=== PATIENT | female | born 1995 | race Caucasian/White ===

== ENCOUNTER 2017-06-05 22:41 | Emergency (ER) | payer MEDICAID, OTHER ==
[2017-06-05 22:53] VITALS: BP 110/67; PULSE 91; RESP 17; TEMP 98.9; BMI 31.1
[2017-06-05 22:58] VITALS: O2SAT 98
--- NOTE | 2017-06-05 23:11 | ED PDOC ---
Arrival/HPI - General Historian: Patient <Heriberto Earl A - Last Filed: 06/05/17 23:08> <Aubrey Hughes - Last Filed: 06/06/17 00:38> - General Chief Complaint: Female Genitourinary Time Seen by Provider: 06/05/17 23:08 - History of Present Illness Narrative History of Present Illness (Text): 06/05/17 23:12 21yo female present to ED stating she wants to save her . She notes that she is currently 5weeks . states she had wanted to abort the . Was given Methotrexate injection and Rhogam today by her OB. She report that she still have the methotrexate medication to take orally, but was given a dose of IM methotrexate earlier today, but she changed her mind about the tonight. States she want;s to know if we can save the baby. She however denies any abdominal pain, vaginal bleeding, nausea, vomiting, any other somatic complaint. (Heriberto Earl A) Past Medical History - Provider Review Nursing Documentation Reviewed: Yes - Infectious Disease Hx of Infectious Diseases: None - Reproductive Currently : Yes - Cardiac Hx Cardiac Disorders: No - Pulmonary Hx Respiratory Disorders: No - Neurological Hx Neurological Disorder: No - HEENT Hx HEENT Disorder: No - Renal Hx Renal Disorder: No - Endocrine/Metabolic Hx Endocrine Disorders: No - Hematological/Oncological Hx Blood Disorders: No - Integumentary Hx Dermatological Disorder: No - Musculoskeletal/Rheumatological Hx Musculoskeletal Disorders: No - Gastrointestinal Hx Gastrointestinal Disorders: No - Genitourinary/Gynecological Hx Genitourinary Disorders: No - Psychiatric Hx Psychophysiologic Disorder: No Hx Anxiety: No Hx Bipolar Disorder: No Hx Depression: No Hx Emotional Abuse: No Hx Hallucinations: No Hx Panic Disorder: No Hx Post Traumatic Stress Disorder: No Hx Psychosis: No Hx Physical Abuse: No Hx Schizophrenia: No Hx Sexual Abuse: No Hx Substance Use: No - Anesthesia Hx Anesthesia: No Hx Anesthesia Reactions: No Hx Malignant Hyperthermia: No <Heriberto Earl - Last Filed: 06/05/17 23:08> Family/Social History - Physician Review Nursing Documentation Reviewed: Yes Family/Social History: Unknown Family HX Smoking Status: Never Smoked Hx Alcohol Use: No Hx Substance Use: No <Heriberto Earl A - Last Filed: 06/05/17 23:08> Allergies/Home Meds <Heriberto tuttle A - Last Filed: 06/05/17 23:08> <Aubrey Hughes - Last Filed: 06/06/17 00:38> Allergies/Adverse Reactions: Allergies No Known Allergies Allergy (Verified 06/05/17 22:53) Home Medications: Home Meds Medication Instructions Recorded Confirmed No Known Home Med 08/31/15 06/05/17 Review of Systems - Physician Review All systems were reviewed & negative as marked: Yes - Review of Systems Constitutional: Normal Eyes: Normal ENT: Normal Respiratory: Normal Cardiovascular: Normal Gastrointestinal: Normal Genitourinary Female: Normal Musculoskeletal: Normal Skin: Normal Neurological: Normal Endocrine: Normal Hemo/Lymphatic: Normal Psychiatric: Normal <Heriberto Earl A - Last Filed: 06/05/17 23:08> Physical Exam Vital Signs Reviewed: Yes Temperature: Afebrile Blood Pressure: Normal Pulse: Regular Respiratory Rate: Normal Appearance: Positive for: Well-Appearing, Non-Toxic, Comfortable Pain Distress: None Mental Status: Positive for: Alert and Oriented X 3 - Systems Exam Head: Present: Atraumatic, Normocephalic Pupils: Present: PERRL Extroacular Muscles: Present: EOMI Conjunctiva: Present: Normal Mouth: Present: Moist Mucous Membranes Neck: Present: Normal Range of Motion Respiratory/Chest: Present: Clear to Auscultation, Good Air Exchange. No: Respiratory Distress, Accessory Muscle Use Cardiovascular: Present: Regular Rate and Rhythm, Normal S1, S2. No: Murmurs Abdomen: Present: Normal Bowel Sounds. No: Tenderness, Distention, Peritoneal Signs Back: Present: Normal Inspection Upper Extremity: Present: Normal Inspection. No: Cyanosis, Edema Lower Extremity: Present: Normal Inspection. No: Edema Neurological: Present: GCS=15, CN II-XII Intact, Speech Normal Skin: Present: Warm, Dry, Normal Color. No: Rashes Psychiatric: Present: Alert, Oriented x 3, Normal Insight, Normal Concentration <Heriberto Earl A - Last Filed: 06/05/17 23:08> Vital Signs Temp Pulse Resp BP Pulse Ox 06/05/17 22:53 98.9 F 91 H 17 110/67 98 06/05/17 22:52 98.9 F 91 H 17 110/67 100 Medical Decision Making <Heriberto Earl A - Last Filed: 06/05/17 23:08> <EllenAubrey - Last Filed: 06/06/17 00:38> ED Course and Treatment: 06/05/17 23:17 Pt denied any somatic complaint in ED. She was hemodynamically stable and in no distress. She wanted her to be save after taking a dose of methotrexate today. She was advised that they is nothing we can do at this time. Advised to call her OB tomorrow morning and inform them of her decision to keep her . She plan not to take the remaining methotrexate . She was advised to return to ED if she starts having abdominal pain or having vaginal bleeding. (Heriberto Earl) - PA / MANAGER STATISTICS / Resident Statement / has reviewed & agrees with the documentation as recorded. <Aubrey Hughes - Last Filed: 06/06/17 00:38> Disposition/Present on Arrival - Present on Arrival Any Indicators Present on Arrival: No History of DVT/PE: No History of Uncontrolled Diabetes: No Urinary Catheter: No History of Decub. Ulcer: No History Surgical Site Infection Following: None - Disposition Have Diagnosis and Disposition been Completed?: Yes Disposition Time: 23:10 Patient Plan: Discharge <Heriberto Earl - Last Filed: 06/05/17 23:08> <Aubrey Hughes - Last Filed: 06/06/17 00:38> - Disposition Diagnosis: Abdominal pain Disposition: HOME/ ROUTINE Condition: STABLE Discharge Instructions (ExitCare): Abdominal Pain (ED) Additional Instructions: Follow up with your OB Return to ED for any pain, vaginal bleeding, any other complaint. Referrals: Mukund Brewer MD [Staff Provider] - Follow up with primary Forms: [employer] (Maltese)
== END 2017-06-05 23:22 | disposition home or self-care (01) ==
LOC: ED 22:41
DX: R10.9 Unspecified abdominal pain (principal)

== ENCOUNTER 2017-06-07 14:22 | Emergency (ER) | payer MEDICAID ==
[2017-06-07 14:39] VITALS: BMI 30.2
[2017-06-07 14:43] VITALS: TEMP 98.1; O2SAT 100
[2017-06-07 15:56] LABS: BASO # 0.01 K/mm3 (0.0-2.0); BASO % 0.1 % (0.0-3.0); EOS # 0.1 (0.0-0.7); EOS % 0.5 % (1.5-5.0); GRAN # 6.64 (1.4-6.5); GRAN % 70.1 % (50.0-68.0); HEMATOCRIT 38.3 % (36.0-48.0); LYMPH # 2.4 (1.2-3.4); LYMPH % 25.1 % (22.0-35.0); MEAN CELL VOLUME 73.4 fl (80.0-105.0); MEAN CORPUSCULAR HEMOGLOBIN 24.3 pg (25.0-35.0); MEAN CORPUSCULAR HGB CONC 33.2 g/dl (31.0-37.0); MEAN PLATELET VOLUME 10.5 fl (7.0-11.0); MONO # 0.4 (0.1-0.6); MONO % 4.2 % (1.0-6.0); RED CELL DISTRIBUTION WIDTH 14.3 % (11.5-14.5); WHITE BLOOD COUNT 9.5 10^3/ul (4.5-11.0)
[2017-06-07 16:04] LABS: ALB/GLOB RATIO 1.3 (1.1-1.8); ALKALINE PHOSPHATASE 40 U/L (38-126); ALT/SGPT 48 U/L (7-56); AST/SGOT 35 U/L (14-36); BILIRUBIN,TOTAL 0.5 mg/dL (0.2-1.3); BLOOD UREA NITROGEN 13 mg/dL (7-21); CALCIUM 9.7 mg/dL (8.4-10.5); CARBON DIOXIDE 23 mmol/L (21-33); CHLORIDE 104 mmol/L (98-107); GFR AFRICAN-AMERICAN > 60; GLUCOSE,RANDOM 88 mg/dL (70-110); LIPASE 49 U/L (23-300); POTASSIUM 4.1 mmol/L (3.6-5.0); SODIUM 138 mmol/L (132-148); TOTAL PROTEIN 7.6 g/dL (5.8-8.3)
[2017-06-07 16:06] VITALS: BP 115/71; PULSE 99; RESP 18
--- NOTE | 2017-06-07 17:17 | US ---
Indication: , abdominal cramping Comparison: None available. Technique: Transvaginal pelvic ultrasound Findings: The uterus measures approximately 7.4 x 5.1 x 4.9 cm. Cervix length measures approximately 3.4 cm. There is a single intrauterine fetus present. 4 mm yolk sac. The gestational sac measures 1.8 cm and is compatible with a gestational age of 6 weeks 2 days. The crown-rump length measures 0.3 cm and is compatible with a gestational age of 6 weeks 0 days. There is heart motion which measured 149.2 BPM. The right ovary measures 1.9 x 1.7 x 1.5 cm. The left ovary is not visualized. Blood flow is demonstrated to the right ovary. Impression: Live single intrauterine with estimated gestational age 6 weeks 1 day. heart rate 149.2 bpm. Advise an anomaly screen at 16-18 weeks gestational age The left ovary was not visualized.
[2017-06-07 17:27] LABS: URINE BILIRUBIN NEGATIVE (NEGATIVE); URINE BLOOD NEGATIVE (NEGATIVE); URINE GLUCOSE (UA) NEGATIVE (NEGATIVE); URINE KETONE NEGATIVE (NEGATIVE); URINE LEUKOCYTE ESTERASE NEGATIVE Leu/uL (NEGATIVE); URINE PROTEIN NEGATIVE mg/dL (<30 mg/dL); URINE UROBILINOGEN 0.2 E.U./dL (<1 E.U./dL)
[2017-06-07 17:29] LABS: URINE APPEARANCE CLEAR (CLEAR); URINE COLOR YELLOW (YELLOW)
--- NOTE | 2017-06-07 17:34 | ED PDOC ---
Arrival/HPI - General Chief Complaint: Abdominal Pain Time Seen by Provider: 06/07/17 14:36 Historian: Patient - History of Present Illness Narrative History of Present Illness (Text): 06/07/17 17:31 21-year-old female presents today requesting an evaluation to check on the status of her . Patient states 2 days ago she received an IM injection of methotrexate for an elective termination of her . Patient states after getting the IM injection of methotrexate and Rhogam her and her partner decided that they no longer wanted to terminate the . So she did not take the oral methotrexate pills that she was prescribed. Patient states she spoke with her assembler trim and a assembler trim advised her to take folic acid and monitor her symptoms. Patient states that she told the triage nurse today that she had abdominal cramping, but she states "I do not have any pain I really just wanted to see what is going on with the baby'. Patient denies vaginal bleeding or vaginal discharge. She denies abdominal pain. She denies nausea vomiting diarrhea or constipation. She denies any urinary symptoms. Quality: Other (no pain) Past Medical History - Provider Review Nursing Documentation Reviewed: Yes - Travel History Have you recently traveled outside [place] w/in the past 3 mons?: No - Infectious Disease Hx of Infectious Diseases: None - Tetanus Immunization Tetanus Immunization: Unknown - Cardiac Hx Cardiac Disorders: No - Pulmonary Hx Respiratory Disorders: No - Neurological Hx Neurological Disorder: No - HEENT Hx HEENT Disorder: No - Renal Hx Renal Disorder: No - Endocrine/Metabolic Hx Endocrine Disorders: No - Hematological/Oncological Hx Blood Disorders: No - Integumentary Hx Dermatological Disorder: No - Musculoskeletal/Rheumatological Hx Musculoskeletal Disorders: No - Gastrointestinal Hx Gastrointestinal Disorders: No - Genitourinary/Gynecological Hx Genitourinary Disorders: No - Psychiatric Hx Psychophysiologic Disorder: No Hx Anxiety: No Hx Bipolar Disorder: No Hx Depression: No Hx Emotional Abuse: No Hx Hallucinations: No Hx Panic Disorder: No Hx Post Traumatic Stress Disorder: No Hx Psychosis: No Hx Physical Abuse: No Hx Schizophrenia: No Hx Sexual Abuse: No Hx Substance Use: No - Anesthesia Hx Anesthesia: No Hx Anesthesia Reactions: No Hx Malignant Hyperthermia: No Family/Social History - Physician Review Nursing Documentation Reviewed: Yes Family/Social History: Unknown Family HX Smoking Status: Never Smoked Hx Alcohol Use: No Hx Substance Use: No Allergies/Home Meds Allergies/Adverse Reactions: Allergies No Known Allergies Allergy (Verified 06/07/17 14:38) Home Medications: Home Meds Medication Instructions Recorded Confirmed Vit No.126/Iron/Folic 1 tab PO DAILY 06/07/17 06/07/17 [Classic Tablet] Review of Systems - Review of Systems Constitutional: absent: Fatigue, Fevers Respiratory: absent: SOB, Cough Cardiovascular: absent: Chest Pain, Palpitations, Other Gastrointestinal: absent: Abdominal Pain, Constipation, Diarrhea, Nausea, Vomiting Genitourinary Female: absent: Dysuria, Frequency, Hematuria, Vaginal Bleeding, Vaginal Discharge Musculoskeletal: absent: Arthralgias, Back Pain Skin: absent: Rash, Pruritis Neurological: absent: Headache, Dizziness Psychiatric: absent: Anxiety, Depression, Suicidal Ideation Physical Exam Vital Signs Reviewed: Yes Vital Signs Temp Pulse Resp BP Pulse Ox 06/07/17 16:05 99 H 18 115/71 100 06/07/17 14:41 98.1 F 121 H 17 117/76 100 Temperature: Afebrile Blood Pressure: Normal Pulse: Tachycardic Respiratory Rate: Normal Appearance: Positive for: Well-Appearing, Non-Toxic, Comfortable Pain Distress: None Mental Status: Positive for: Alert and Oriented X 3 - Systems Exam Head: Present: Atraumatic Mouth: Present: Moist Mucous Membranes Respiratory/Chest: Present: Clear to Auscultation Cardiovascular: Present: Regular Rate and Rhythm Abdomen: Present: Normal Bowel Sounds. No: Tenderness, Distention, Peritoneal Signs, Rebound, Guarding Genitourinary/Pelvic Exam: Present: Other (PT REFUSED VAGINAL/SPECULUM EXAMINATION) Back: Present: Normal Inspection. No: CVA Tenderness Neurological: Present: GCS=15, Speech Normal Skin: Present: Warm, Dry, Normal Color. No: Rashes Psychiatric: Present: Alert, Oriented x 3 Medical Decision Making ED Course and Treatment: 06/07/17 17:34 Patient is nontoxic well appearing in no distress. no abdominal pain. no vaginal bleeding or discharge. pt without any complaints. just wants to see if baby is okay after taking one dose of methotrexate. CBC: wnl CMP: wnl Beta hC TYPE AND SCREEN:A- Urinalysis: wnl Ultrasound: Findings: The uterus measures approximately 7.4 x 5.1 x 4.9 cm. Cervix length measures approximately 3.4 cm. There is a single intrauterine fetus present. 4 mm yolk sac. The gestational sac measures 1.8 cm and is compatible with a gestational age of 6 weeks 2 days. The crown-rump length measures 0.3 cm and is compatible with a gestational age of 6 weeks 0 days. There is heart motion which measured 149.2 BPM. The right ovary measures 1.9 x 1.7 x 1.5 cm. The left ovary is not visualized. Blood flow is demonstrated to the right ovary. Impression: Live single intrauterine with estimated gestational age 6 weeks 1 day. heart rate 149.2 bpm. Advise an anomaly screen at 16-18 weeks gestational age The left ovary was not visualized. Discussed all the results the patient. I have had a long in-depth conversation with the patient and the patient's partner advising them that even though the ultrasound shows a heartbeat at this point there is still concern for the possibility of /miscarriage. I have also advised the patient that with a history of taking a dose of methotrexate there is concern/possibility for deformity/disability of the fetus even if the remains viable. i have stressed importance of f/u with fleet service clerk and advised continuation of vitamins. advised immediate return if any concerning symptoms develop. Patient reassessment, vital signs are stable. pt remains without any complaints. pt has refused pelvic examination. Patient verbalizes understanding of discharge instructions and need for immediate followup. all aspects of this case were discussed the attending of record. Impression: Tylenol every 4 hours as needed for pain Increase fluids Followup with the optometric aide within the next 2 days Return immediately if symptoms worsen persist or if new symptoms develop: High fevers, heavy bleeding, severe abdominal pain, vomiting, diarrhea, dizziness or weakness or any other concerning symptoms develop. - Lab Interpretations Lab Results: 06/07/17 15:45 06/07/17 15:45 Lab Results 06/07/17 15:45: WBC 9.5 D, RBC 5.22, Hgb 12.7, Hct 38.3, MCV 73.4 L, MCH 24.3 L , MCHC 33.2, RDW 14.3, Plt Count 221, MPV 10.5, Gran % 70.1 H, Lymph % (Auto) 25.1, [place] % (Auto) 4.2, Eos % (Auto) 0.5 L, Baso % (Auto) 0.1, Gran # 6.64 H, Lymph # 2.4, [place] # 0.4, Eos # 0.1, Baso # 0.01 06/07/17 15:45: Blood Type A NEGATIVE, Antibody Screen Positive, Antibody Identification Anti D, BBK History Checked No verified bt 06/07/17 15:45: Beta HCG, Quant 22381.00 H 06/07/17 15:45: Sodium 138, Potassium 4.1, Chloride 104, Carbon Dioxide 23, Anion Gap 15, BUN 13, Creatinine 0.6 L, Est GFR ( Amer) > 60, Est GFR ( Non-Af Amer) > 60, Random Glucose 88, Calcium 9.7, Total Bilirubin 0.5, AST 35, ALT 48, Alkaline Phosphatase 40, Total Protein 7.6, Albumin 4.3, Globulin 3.3, Albumin/Globulin Ratio 1.3, Lipase 49 06/07/17 15:45: Urine Color Yellow, Urine Appearance Clear, Urine pH 6.0, Ur Specific [place] 1.025, Urine Protein Negative, Urine Glucose (UA) Negative, Urine Ketones Negative, Urine Blood Negative, Urine Nitrate Negative, Urine Bilirubin Negative, Urine Urobilinogen 0.2, Ur Leukocyte Esterase Negative - RAD Interpretation Radiology Orders: 06/07/17 14:48 OB TRANSVAGINAL [US] Stat Disposition/Present on Arrival - Present on Arrival Any Indicators Present on Arrival: No History of DVT/PE: No History of Uncontrolled Diabetes: No Urinary Catheter: No History of Decub. Ulcer: No History Surgical Site Infection Following: None - Disposition Have Diagnosis and Disposition been Completed?: Yes Diagnosis: Disposition: HOME/ ROUTINE Disposition Time: 17:37 Patient Plan: Discharge Condition: GOOD Discharge Instructions (ExitCare): (ED) Additional Instructions: Tylenol every 4 hours as needed for pain Increase fluids Followup with the optometric aide within the next 2 days Return immediately if symptoms worsen persist or if new symptoms develop: High fevers, heavy bleeding, severe abdominal pain, vomiting, diarrhea, dizziness or weakness or any other concerning symptoms develop. Take vitamins daily Referrals: Mukund Brewer MD [Staff Provider] - Follow up with primary Dez Joseph DO [Staff Provider] - Follow up with primary Forms: [employer] (Welsh), WORK NOTE
== END 2017-06-07 17:45 | disposition home or self-care (01) ==
LOC: ED 14:22
DX: O26.891 Other specified pregnancy related conditions, first trimester (principal); Z3A.01 Less than 8 weeks gestation of pregnancy